=== PATIENT | female | born 1970 | race Caucasian/White ===

== ENCOUNTER 2016-07-19 20:56 | Emergency (ER) | payer SELFPAY ==
[2016-07-19 20:56] VITALS: BMI 23.7
[2016-07-19 21:11] VITALS: BP 160/100; PULSE 72; TEMP 97.7
[2016-07-19] MEDS ORDERED: Lidocaine 2% Inj (20ml) INFIL STA (22:28)
[2016-07-19] MEDS ORDERED: Lidocaine 2% Inj (20ml) ONE (22:31)
--- NOTE | 2016-07-19 22:38 | C.PDOC ---
Patient is a 45 year old female who presents to the ER after hitting her left pinky toe on a metal stool while walking. Patient denies any other physical complaint. (Sun Tamayo) History Per: Patient History/Exam Limitations: no limitations Onset/Duration Of Symptoms: Hrs Current Symptoms Are (Timing): Still Present - Ankle/Foot Description Of Injury: Struck With Object (Metal stool) <Sun Tamayo - Last Filed: 07/19/16 23:11> <Fatou Rascon - Last Filed: 07/19/16 23:51> Time Seen by Provider: 07/19/16 21:31 Chief Complaint (Nursing): Lower Extremity Problem/Injury Past Medical History Reviewed: Historical Data, Nursing Documentation, Vital Signs Family History: States: Unknown Family Hx - Social History Hx Tobacco Use: Yes Hx Alcohol Use: Yes Hx Substance Use: No - Immunization History Hx Tetanus Toxoid Vaccination: No Hx Influenza Vaccination: No Hx Pneumococcal Vaccination: No <Sun Tamayo - Last Filed: 07/19/16 23:11> Vital Signs: Last Vital Signs Temp 97.7 F 07/19/16 21:06 Pulse 72 07/19/16 21:06 Resp 20 07/19/16 21:06 BP 160/100 H 07/19/16 21:06 Pulse Ox 99 07/19/16 23:18 Review Of Systems Except As Marked, All Systems Reviewed And Found Negative. Musculoskeletal: Positive for: Foot Pain (Left pinky toe) <Sun Tamayo - Last Filed: 07/19/16 23:11> Physical Exam - Physical Exam Appears: Well, Non-toxic Skin: Normal Color, Warm, Dry Head: Atraumatic, Normacephalic Extremity: Swelling (Left pinky toe), Other (Left pinky toe ecchymosis) Neurological/Psych: Oriented x3, Normal Speech, Normal Cognition <Sun Tamayo - Last Filed: 07/19/16 23:11> ED Course And Treatment O2 Sat by Pulse Oximetry: 99 (Room air) Pulse Ox Interpretation: Normal Progress Note: X-ray of left foot ordered, results showed left pinky toe displaced posterio-laterally. Digital block preformed. I attempted to reduce dislocation. Post reduction x-ray ordered and shows that reduction wasn't successful. attempted to do reduction. The second post reduction xray is pending. Case was signed out to who will follow up the result of the xray and will dispo pt home. <Sun Tamayo - Last Filed: 07/19/16 23:11> Procedure: Blank - Performed by: Performed by:: Attending physician - Topical: Local/Regional Anesthetic:: Lidocaine 1% - Regional Nerve Block Regional Nerve Block:: Right, Digital - Location Toe:: 5 - Description Discription of Procedure: 07/19/16 (Manipulation with reduction of dislocation at MTP joint) - Result Result: Successful - Patient Tolerated Procedure Patient Tolerated Procedure:: Well <Fatou Rascon - Last Filed: 07/19/16 23:51> Disposition - Disposition Disposition Time: 23:18 <Sun Tamayo - Last Filed: 07/19/16 23:11> - Disposition Disposition Time: 23:51 <Fatou Rascon - Last Filed: 07/19/16 23:51> - Disposition Referrals: Anthony Iglesias DPM [Staff Provider] - Disposition: HOME/ ROUTINE Condition: STABLE Additional Instructions: Follow up with [facility] within 1-2 days. Return to Ed if feel worse. Prescriptions: Ibuprofen [Motrin Tab] 600 mg PO Q8 #30 tab oxyCODONE/Acetaminophen [Percocet 5/325 mg Tab] 1 tab PO QID PRN #10 tab PRN Reason: Pain Instructions: Toe Fracture (ED) Forms: Work Excuse - Clinical Impression Clinical Impression: Dislocation of toe - Scribe Statement The provider has reviewed the documentation as recorded by the Scribe <Sun Tamayo - Last Filed: 07/19/16 23:11> <Fatou Rascon - Last Filed: 07/19/16 23:51> - Scribe Statement Enrike Booker All medical record entries made by the Scribe were at my direction and personally dictated by me. I have reviewed the chart and agree that the record accurately reflects my personal performance of the history, physical exam, medical decision making, and the department course for this patient. I have also personally directed, reviewed, and agree with the discharge instructions and disposition. (Sun Tamayo) Physician Patient Turnover Patient Signed Over To: Fatou Rascon Handoff Comments: follow up post reduction xray and to dispo pt home <Sun Tamayo - Last Filed: 07/19/16 23:11>
[2016-07-19 23:50] VITALS: RESP 16; O2SAT 98
--- NOTE | 2016-07-20 08:24 | RAD ---
PROCEDURE: HISTORY: post reduction COMPARISON: 07/19/2016 TECHNIQUE: Three views FINDINGS: No fracture line is noted. The prior lateral subluxation of the 5th distal phalanx from the 5th proximal phalanx has been reduced and is now anatomical. The 5th proximal and middle phalanges appear fused. An accessory ossification center-an os peroneum projects lateral to the cuboid bone. IMPRESSION: Anatomical reduction of a prior lateral subluxation affecting the 5th toe as above
--- NOTE | 2016-07-20 08:27 | RAD ---
PROCEDURE: HISTORY: injury COMPARISON: None TECHNIQUE: Three views FINDINGS: The 5th proximal and middle phalanges are fused. There is lateral subluxation of the 5th distal phalanx from the corresponding proximal phalanx. No fracture line noted. An accessory ossification center-an os peroneum projects lateral to the cuboid bone. IMPRESSION: Lateral subluxation of the 5th distal phalanx as detailed above
== END 2016-07-19 23:49 | disposition home or self-care (01) ==
LOC: C.ER 20:56
DX: S93.125A Dislocation of metatarsophalangeal joint of left lesser toe(s), initial encounter (principal); W22.8XXA Striking against or struck by other objects, initial encounter; Y93.01 Activity, walking, marching and hiking

== ENCOUNTER 2017-02-05 15:57 | Emergency (ER) | payer OTHER ==
[2017-02-05 15:57] VITALS: BMI 23.7
[2017-02-05 16:17] VITALS: TEMP 98.1
[2017-02-05] MEDS ORDERED: Emtricitabine-Tenofovir 200 mg-300 mg Tab PO STA ×2 (17:25→17:41)
[2017-02-05] MEDS ORDERED: cefTRIAXone (Rocephin) 250 mg Inj IM STA (17:25)
[2017-02-05 18:20] LABS: RBC URINE < 1 /hpf (0-3); URINE BILIRUBIN NEGATIVE (NEGATIVE); URINE BLOOD NEGATIVE (NEGATIVE); URINE COLOR Colorless (YELLOW); URINE GLUCOSE (UA) NORMAL (Normal); URINE KETONE NEGATIVE (NEGATIVE); URINE LEUKOCYTE ESTERASE NEG Leu/uL (Negative); URINE PROTEIN NEGATIVE (NEGATIVE); URINE UROBILINOGEN NORMAL mg/dL (0.2-1.0); WBC URINE 1 /hpf (0-5)
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
[2017-02-05 18:53] VITALS: BP 156/100; PULSE 73; RESP 18
[2017-02-05 21:50] VITALS: O2SAT 100
[2017-02-06] MEDS ORDERED: Emtricitabine-Tenofovir 200 mg-300 mg Tab PO NR ×2 (10:00)
== END 2017-02-05 19:50 | disposition home or self-care (01) ==
LOC: C.ER 15:57
DX: Z20.2 Contact with and (suspected) exposure to infections with a predominantly sexual mode of transmission (principal)
CPT/HCPCS: 81001; 84703; 87086; 87491; 87591; 96372; 99284; J0696

== ENCOUNTER 2017-06-13 14:29 | Emergency (ER) | payer SELFPAY ==
[2017-06-13 14:30] VITALS: BMI 25.3
[2017-06-13 14:40] VITALS: BP 123/79; PULSE 85; RESP 18; TEMP 98.1; O2SAT 100
--- NOTE | 2017-06-13 15:10 | C.PDOC ---
History Of Present Illness 46 y/o female c/o headache,subjective fever, cough, and body aches x 3 -4 days. Pt states that she is taking OTC Nyquil w/o relief. Pt denies sick contacts. HPI: Influenza Time Seen by Provider: 06/13/17 14:46 Chief Complaint: Flu-like Symptoms History Per: Patient Exam Limitations: no limitations Onset/Duration Of Symptoms: Days Symptoms include: fever (subjective), headache, bodyaches, cough. denies: vomiting, diarrhea Sick Contacts (Context): None Past Medical History Reviewed: Historical Data, Nursing Documentation, Vital Signs Vital Signs: Last Vital Signs Temp 98.1 F 06/13/17 14:38 Pulse 85 06/13/17 14:38 Resp 18 06/13/17 14:38 BP 123/79 06/13/17 14:38 Pulse Ox 100 06/13/17 14:38 - Medical History PMH: No Chronic Diseases Other Surgeries: Hx of surgeries Family History: States: No Known Family Hx - Social History Hx Tobacco Use: Yes Hx Alcohol Use: No Hx Substance Use: No - Immunization History Hx Tetanus Toxoid Vaccination: No Hx Influenza Vaccination: No Hx Pneumococcal Vaccination: No Review Of Systems Constitutional: Positive for: Fever (subjective fever), Malaise. Negative for: Chills Respiratory: Positive for: Cough Neurological: Positive for: Headache Physical Exam - Physical Exam Appears: Non-toxic, No Acute Distress Skin: Warm, Dry Head: Atraumatic, Normacephalic Eye(s): bilateral: Normal Inspection Ear(s): Bilateral: Normal Nose: No Discharge Oral Mucosa: Moist Throat: No Erythema, No Exudate Neck: Supple Chest: Symmetrical Cardiovascular: No Rhythm Irregular, No Murmur Respiratory: No Decreased Breath Sounds, No Accessory Muscle Use, No Rales, No Rhonchi, No Wheezing Neurological/Psych: Oriented x3, Normal Speech, Normal Motor, Normal Sensation Medical Decision Making Medical Decision Making: subjective fever with flu like symptoms 3-4 days,+ smoker- d/c with tamiflu and supportive care - ECG O2 Sat by Pulse Oximetry: 100 (RA) Pulse Ox Interpretation: Normal - Progress ED Course And Treament: Patient given Tamiflu PO and Motrin PO. Disposition Counseled Patient/Family Regarding: Diagnosis, Need For Followup, Rx Given - Disposition Referrals: [facility] [place] [facility] [Outside] Disposition: HOME/ ROUTINE Disposition Time: 15:08 Condition: GOOD Additional Instructions: Please take Tylenol or Motrin for fever and/or pain. Stop smoking. Take Tamiflu as prescribed. Increase rest and fluid intake. Follow up wwith your doctor or in medical clinic in a few days. 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 - Scribe Statement The provider has reviewed the documentation as recorded by the Brandy Harrington Provider Attestation All medical record entries made by the Brandy were at my direction and personally dictated by me. I have reviewed the chart and agree that the record accurately reflects my personal performance of the history, physical exam, medical decision making, and the department course for this patient. I have also personally directed, reviewed, and agree with the discharge instructions and disposition.
== END 2017-06-13 15:25 | disposition home or self-care (01) ==
LOC: C.ER 14:29
DX: J11.1 Influenza due to unidentified influenza virus with other respiratory manifestations (principal); F17.210 Nicotine dependence, cigarettes, uncomplicated